=== PATIENT | female | born 1960 | race Two or more races ===

== ENCOUNTER 2020-03-29 16:31 | Emergency (ER) | payer MEDICAID ==
[~2020-03-29] VITALS: Ht 154.9 cm; Wt 64.0 kg
[2020-03-29] MEDS ORDERED: KETOROLAC 60MG/2ML VIAL IM ONE (17:45)
[2020-03-29 18:34] VITALS: BP 172/85
== END 2020-03-29 18:35 | disposition home or self-care (01) ==
LOC: ER 16:31
DX: S33.5XXA Sprain of ligaments of lumbar spine, initial encounter (principal); E11.9 Type 2 diabetes mellitus without complications; I10 Essential (primary) hypertension; E78.00 Pure hypercholesterolemia, unspecified; Z87.828 Personal history of other (healed) physical injury and trauma; Z90.49 Acquired absence of other specified parts of digestive tract; X58.XXXA Exposure to other specified factors, initial encounter; Y93.89 Activity, other specified; Y92.018 Other place in single-family (private) house as the place of occurrence of the external cause
CPT/HCPCS: 96372; 99283; J1885

== ENCOUNTER 2020-10-20 19:05 | Emergency (ER) | payer SELFPAY ==
[~2020-10-20] VITALS: Ht 152.4 cm; Wt 66.0 kg
[2020-10-20 21:17] LABS: BASOPHILS % 1.5 % (0.0-2.0); EOSINOPHILS % 3.9 % (0.0-5.0); HEMATOCRIT. 31.2 % (36.0-48.0); HEMOGLOBIN. 9.9 g/dL (12.0-16.0); LYMPHOCYTES % 27.8 % (20.0-50.0); MEAN CORPUSCULAR HEMOGLOBIN 23.7 pg (28.0-32.0); MEAN CORPUSCULAR VOLUME 74.9 fL (81.0-99.0); MEAN PLATELET VOLUME 7.2 fl (7.4-10.4); MONOCYTES % 7.8 % (2.0-8.0); PLATELET 396 x1000/uL (130-400); RED BLOOD CELL COUNT 4.16 mill/uL (4.2-5.4); RED CELL DISTRIBUTION WIDTH 13.5 % (11.6-14.6)
[2020-10-20 21:24] LABS: CHLORIDE 102 mEq/L (98-107)
[2020-10-20 21:26] LABS: INR 0.9; PROTHROMBIN TIME 10.2 sec (9.6-11.0)
[2020-10-20 22:26] VITALS: BP 181/98
[2020-10-20] MEDS: KETOROLAC 60MG/2ML VIAL IM ONE (22:26)
[2020-10-20 22:39] LABS: CLARITY URINE CLEAR (CLEAR); COLOR URINE YELLOW (YELLOW); KETONES URINE NEGATIVE (NEGATIVE); LEUKOCYTE ESTERASE URINE 2+ (NEGATIVE); NITRITE URINE NEGATIVE (NEGATIVE); OCCULT BLOOD URINE NEGATIVE (NEGATIVE); PROTEIN URINE 1+ (NEGATIVE); SPECIFIC GRAVITY URINE 1.006 (1.005-1.030); UROBILINOGEN URINE 0.2 E.U./dL (0.2-1.0)
[2020-10-21] MEDS ORDERED: IBUP-2028 MT (00:46)
[2020-10-21] MEDS ORDERED: CIPR500S4 PO (00:46)
== END 2020-10-21 01:01 | disposition home or self-care (01) ==
LOC: ER 19:05
DX: N10 Acute pyelonephritis (principal); I10 Essential (primary) hypertension; E11.9 Type 2 diabetes mellitus without complications; E78.00 Pure hypercholesterolemia, unspecified; Z90.49 Acquired absence of other specified parts of digestive tract; Z87.442 Personal history of urinary calculi
CPT/HCPCS: 36415; 74176; 76705; 80053; 81003; 82962; 83690; 85025; 85610; 93005; 96372; 99285; J1885

== ENCOUNTER 2021-07-20 18:02 | Inpatient (IN) | payer MEDICAID ==
[~2021-07-20] VITALS: Ht 123.2 cm; Wt 64.1 kg
[~2021-07-20 18:02] MED LIST: CIPR500S4 PO; IBUP-2028 MT
[2021-07-20 20:44] LABS: BASOPHILS % 1.3 % (0.0-2.0); EOSINOPHILS % 2.7 % (0.0-5.0); HEMATOCRIT. 34.2 % (36.0-48.0); HEMOGLOBIN. 10.7 g/dL (12.0-16.0); LYMPHOCYTES % 24.3 % (20.0-50.0); MEAN CORPUSCULAR HEMOGLOBIN 23.3 pg (28.0-32.0); MEAN CORPUSCULAR VOLUME 74.6 fL (81.0-99.0); MEAN PLATELET VOLUME 8.9 fl (7.4-10.4); MONOCYTES % 8.5 % (2.0-8.0); NEUTROPHILS % 63.2 % (40.0-76.0); PLATELET 307 x1000/uL (130-400); RED BLOOD CELL COUNT 4.59 mill/uL (4.2-5.4); RED CELL DISTRIBUTION WIDTH 14.5 % (11.6-14.6)
[2021-07-20 20:53] LABS: CHLORIDE 99 mEq/L (98-107)
[2021-07-20] MEDS ORDERED: NITROGLYCERIN 0.4MG TABLET SL SL PRN (21:30)
[2021-07-20] MEDS ORDERED: ASPIRIN 81MG TABLET PO ONE (21:30)
[2021-07-21 08:40] VITALS: BP 125/67
[2021-07-21 08:50] VITALS: BP 125/67
[2021-07-21] MEDS ORDERED: HYDROCODONE/ACETAMINOPHEN 5/325MG TABLET PO PRN ×2 (09:30→10:15)
[2021-07-21] MEDS ORDERED: MORPHINE SULFATE 2 MG/ML CPJ (NOT FOR IM USE) IV PRN (09:30)
[2021-07-21] MEDS ORDERED: NITROGLYCERIN 0.4MG TABLET SL SL PRN (09:30)
[2021-07-21] MEDS ORDERED: NALOXONE HCL 0.4MG/ML VIAL IV PRN (09:45)
[2021-07-21] MEDS ORDERED: GABA-529 PO (09:50)
[2021-07-21] MEDS ORDERED: ATOR20TA65 PO (09:50)
[2021-07-21] MEDS ORDERED: AMLO10TA80 PO (09:50)
[2021-07-21] MEDS ORDERED: ONDANSETRON HCL 4MG/2ML INJ IV PRN (10:15)
[2021-07-21] MEDS ORDERED: DOCUSATE SODIUM 100MG CAPSULE PO PRN (10:15)
[2021-07-21] MEDS ORDERED: ACETAMINOPHEN 325MG TABLET PO PRN ×2 (10:15)
[2021-07-21] MEDS ORDERED: CLONIDINE 0.1MG TABLET PO PRN (10:15)
[2021-07-21] MEDS ORDERED: LORAZEPAM 0.5MG TABLET PO PRN (10:15)
[2021-07-21] MEDS ORDERED: IPRATROPIUM/ALBUTEROL 0.5-3(2.5)MG/3ML NEB HHN PRN (10:15)
[2021-07-21 12:00] VITALS: BP 132/71
[2021-07-21] MEDS ORDERED: *PATIENT'S OWN MEDICATION STORAGE XX SCH (12:00)
[2021-07-21 13:15] LABS: LDL CHOLESTEROL 61 mg/dL (5-100)
[2021-07-21 13:17] LABS: CREATINE KINASE 60 IU/L (26-192); HDL CHOLESTEROL 47 mg/dL (40-59)
[2021-07-21 13:19] LABS: CREATINE KINASE MB FRACTION < 1.0 ng/mL (0.5-3.6)
[2021-07-21] MEDS: GABAPENTIN 100MG CAPSULE PO SCH ×2 (13:56→21:14)
[2021-07-21] MEDS: ASPIRIN 81MG EC TABLET PO SCH (13:56)
[2021-07-21] MEDS ORDERED: REGADENOSON 0.4 MG/5 ML IV ONE (14:00)
[2021-07-21 16:00] VITALS: BP 140/82
[2021-07-21 20:00] VITALS: BP 137/74
[2021-07-21] MEDS ORDERED: ZOLPIDEM TARTRATE 5MG TABLET PO PRN (21:00)
[2021-07-22] VITALS: BP 123/73
[2021-07-22 04:00] VITALS: BP 119/72
[2021-07-22] MEDS: GABAPENTIN 100MG CAPSULE PO SCH ×3 (05:35→23:13)
[2021-07-22 05:39] LABS: HEMATOCRIT. 32.4 % (36.0-48.0); HEMOGLOBIN. 10.2 g/dL (12.0-16.0); LYMPHOCYTES % 32.1 % (20.0-50.0); MEAN CORPUSCULAR HEMOGLOBIN 23.6 pg (28.0-32.0); MEAN CORPUSCULAR VOLUME 74.9 fL (81.0-99.0); MEAN PLATELET VOLUME 8.4 fl (7.4-10.4); MONOCYTES % 9.5 % (2.0-8.0); NEUTROPHILS % 49.4 % (40.0-76.0); PLATELET 342 x1000/uL (130-400); RED BLOOD CELL COUNT 4.32 mill/uL (4.2-5.4); RED CELL DISTRIBUTION WIDTH 14.5 % (11.6-14.6)
[2021-07-22 05:58] LABS: CHLORIDE 102 mEq/L (98-107)
[2021-07-22 08:00] VITALS: BP 128/76
[2021-07-22] MEDS: ASPIRIN 81MG EC TABLET PO SCH (08:33)
[2021-07-22] MEDS: AMLODIPINE 10MG TABLET PO SCH (08:33)
[2021-07-22 12:00] VITALS: BP 120/67
[2021-07-22 16:00] VITALS: BP 124/71
[2021-07-22 20:00] VITALS: BP 122/83
[2021-07-22] MEDS ORDERED: ATORVASTATIN CALCIUM 20MG TABLET PO SCH (21:00)
[2021-07-23] VITALS: BP 115/72
[2021-07-23 04:00] VITALS: BP 122/83
[2021-07-23 05:29] LABS: BASOPHILS % 0.9 % (0.0-2.0); EOSINOPHILS % 5.6 % (0.0-5.0); HEMATOCRIT. 32.6 % (36.0-48.0); HEMOGLOBIN. 10.2 g/dL (12.0-16.0); LYMPHOCYTES % 24.7 % (20.0-50.0); MEAN CORPUSCULAR HEMOGLOBIN 23.5 pg (28.0-32.0); MEAN CORPUSCULAR VOLUME 74.9 fL (81.0-99.0); MEAN PLATELET VOLUME 8.4 fl (7.4-10.4); MONOCYTES % 10.2 % (2.0-8.0); NEUTROPHILS % 58.6 % (40.0-76.0); PLATELET 338 x1000/uL (130-400); RED BLOOD CELL COUNT 4.35 mill/uL (4.2-5.4); RED CELL DISTRIBUTION WIDTH 14.3 % (11.6-14.6)
[2021-07-23] MEDS: GABAPENTIN 100MG CAPSULE PO SCH ×2 (05:52→13:20)
[2021-07-23 06:00] LABS: CHLORIDE 101 mEq/L (98-107)
[2021-07-23 08:00] VITALS: BP 153/78
[2021-07-23] MEDS ORDERED: REGADENOSON 0.4 MG/5 ML IV ONE (09:41)
[2021-07-23 12:00] VITALS: BP 134/83
[2021-07-23] MEDS ORDERED: ASPI-1406 PO (12:40)
[2021-07-23] MEDS: AMLODIPINE 10MG TABLET PO SCH (13:20)
[2021-07-23] MEDS: ASPIRIN 81MG EC TABLET PO SCH (13:20)
[2021-07-23 14:40] VITALS: BP 134/83
== END 2021-07-23 16:34 | disposition home or self-care (01) | DRG 198 ==
LOC: ER 18:02 → EDBD 18:02 → ENRESERV 07-21 07:49 → 6WST 07-21 09:17
PROVIDERS: ADMIT Internal Medicine; ATTEND Internal Medicine
DX: R07.89 Other chest pain (principal); I24.9 Acute ischemic heart disease, unspecified; D63.8 Anemia in other chronic diseases classified elsewhere; E78.5 Hyperlipidemia, unspecified; E11.9 Type 2 diabetes mellitus without complications; E78.00 Pure hypercholesterolemia, unspecified; D50.9 Iron deficiency anemia, unspecified; N28.9 Disorder of kidney and ureter, unspecified; R00.0 Tachycardia, unspecified; I10 Essential (primary) hypertension; G47.00 Insomnia, unspecified; R00.2 Palpitations; Z87.442 Personal history of urinary calculi; Z82.5 Family history of asthma and other chronic lower respiratory diseases; Z79.82 Long term (current) use of aspirin; Z90.49 Acquired absence of other specified parts of digestive tract; Z98.891 History of uterine scar from previous surgery
CPT/HCPCS: 36415; 71045; 74176; 78452; 80048; 80053; 80061; 82550; 82553; 83036; 84484; 85025; 85379; 93005; 93017; 93306; 99291; A9500; J2270; J2785

== ENCOUNTER 2021-10-15 20:03 | Emergency (ER) | payer MEDICAID ==
[~2021-10-15] VITALS: Ht 139.7 cm; Wt 65.0 kg
[~2021-10-15 20:03] MED LIST changes: +AMLO10TA80 PO; +ASPI-1406 PO; +ATOR20TA65 PO; -CIPR500S4 PO; +GABA-529 PO
[2021-10-15 20:10] VITALS: BP 174/88
== END 2021-10-15 23:09 | disposition left against medical advice (07) ==
LOC: ER 20:03
DX: Z53.21 Procedure and treatment not carried out due to patient leaving prior to being seen by health care provider (principal)
CPT/HCPCS: 99281

== ENCOUNTER 2022-01-12 10:23 | Emergency (ER) | payer MEDICAID, OTHER ==
[~2022-01-12] VITALS: Ht 160 cm; Wt 78.0 kg
[2022-01-12 10:44] VITALS: BP 122/71
[2022-01-12 11:41] LABS: BASOPHILS % 0.7 % (0.0-2.0); EOSINOPHILS % 2.3 % (0.0-5.0); HEMATOCRIT. 31.7 % (36.0-48.0); LYMPHOCYTES % 14.2 % (20.0-50.0); MEAN CORPUSCULAR HEMOGLOBIN 23.2 pg (28.0-32.0); MEAN CORPUSCULAR VOLUME 73.9 fL (81.0-99.0); MEAN PLATELET VOLUME 8.3 fl (7.4-10.4); MONOCYTES % 10.7 % (2.0-8.0); NEUTROPHILS % 72.1 % (40.0-76.0); PLATELET 340 x1000/uL (130-400); RED BLOOD CELL COUNT 4.29 mill/uL (4.2-5.4); RED CELL DISTRIBUTION WIDTH 14.2 % (11.6-14.6)
[2022-01-12 11:42] LABS: CLARITY URINE CLEAR (CLEAR); COLOR URINE YELLOW (YELLOW); KETONES URINE NEGATIVE (NEGATIVE); LEUKOCYTE ESTERASE URINE 2+ (NEGATIVE); NITRITE URINE NEGATIVE (NEGATIVE); OCCULT BLOOD URINE NEGATIVE (NEGATIVE); PH URINE 6.5 (4.5-8.0); PROTEIN URINE 1+ (NEGATIVE); UROBILINOGEN URINE 0.2 E.U./dL (0.2-1.0)
[2022-01-12 11:49] LABS: CHLORIDE 106 mEq/L (98-107)
[2022-01-12] MEDS ORDERED: CEFTRIAXONE SODIUM 1 G/VIAL IM ONE (12:15)
[2022-01-12] MEDS ORDERED: CEPH500C2 MT (12:33)
== END 2022-01-12 13:03 | disposition home or self-care (01) ==
LOC: ER 10:23
DX: N10 Acute pyelonephritis (principal); N28.9 Disorder of kidney and ureter, unspecified; D50.9 Iron deficiency anemia, unspecified; I10 Essential (primary) hypertension; E78.00 Pure hypercholesterolemia, unspecified; Z90.10 Acquired absence of unspecified breast and nipple; Z79.82 Long term (current) use of aspirin
CPT/HCPCS: 36415; 80053; 81003; 83690; 85025; 87077; 87086; 87186; 96372; 99283; J0696